=== PATIENT | male | born 1960 ===

== ENCOUNTER 2016-06-30 12:30 | Inpatient (IN) | payer OTHER ==
[~2016-06-30] VITALS: Ht 180.3 cm; Wt 98.4 kg
[2016-07-07] VITALS (12 sets, daily range): BP systolic 123–153; BP diastolic 78–100
[2016-07-07] MEDS ORDERED: ceFAZolin 2gm/50ml Premix 50 ML IVPB ONE (07:00)
[2016-07-07] MEDS ORDERED: Thrombin 5000 units TOPIC ONE ×4 (09:49→16:47)
[2016-07-07] MEDS ORDERED: Bupivacaine w/Epi 0.5% 30ml Vial INJ ONE (09:49)
[2016-07-07] MEDS ORDERED: Gelfoam Absorbable 1gm powder pkt TOPIC ONE (09:49)
[2016-07-07] MEDS ORDERED: Thrombin 5000 units spray kit TOPIC ONE (09:49)
[2016-07-07] MEDS ORDERED: Bacitracin 50000 Units Vial ONE (09:50)
[2016-07-07] MEDS ORDERED: PRILOSEC OTC20 MG ORAL (11:33)
--- NOTE | 2016-07-07 13:07 | Anethesia Preoperative Eval ---
Anesthesia Pre-op PMH/ROS General Date of Evaluation: Jul 07, 2016 Time of Evaluation: 12:20 Anesthesiologist: Nayeli ASA Score: ASA 2 Mallampati Score Class I : Soft palate, uvula, fauces, pillars visible Class II: Soft palate, uvula, fauces visible Class III: Soft palate, base of uvula visible Class IV: Only hard plate visible Mallampati Classification: Class II Surgeon: Rina Diagnosis: Lumbar radiculopathy Surgical Procedure: L5-S1 Microdiscectomy Anesthesia History: none Allergies: Coded Allergies: No Known Allergies (Unverified , 07/06/16) Medications: see eMAR Past Medical History Cardiovascular: Denies: CAD, HTN, [place], arrhythmia, other, valve dz Pulmonary: Denies: COPD, ARMANI, asthma, other Gastrointestinal/Genitourinary: Reports: GERD, Denies: CRI, ESRD, other Neurologic/Psychiatric: Denies: CVA, TIA, dementia, depression/anxiety, other Endocrine: Denies: DM, hypothyroidism, other, steroids HEENT: Denies: [place] (L), [place] (R), cataract (L), cataract (R), glaucoma, other Hematology/Immune: Denies: DVT, anemia, bleeding disorder, other Musculoskeletal/Integumentary: Denies: DDD, DJD, OA, RA, edema, other PMH Narrative: GERD, Sinusitis PSxH Narrative: No prior surgery Anesthesia Pre-op Phys. Exam Physician Exam Last Vital Signs Date Time Temp Pulse Resp B/P Pulse Ox O2 Delivery O2 Flow Rate FiO2 07/07/16 12:05 98.9 105 18 132/89 98 Room Air Constitutional: NAD Neurologic: CN 2-12 intact Cardiovascular: RRR, no M/R/G Respiratory: CTA Gastrointestinal: S/NT/ND Airway Exam Mallampati Score: Class II MO: full ROM: full Teeth: intact Anesthesia Pre-op A/P Labs WNL Studies Pre-op Studies: EKG - NSR Risk Assessment & Plan Assessment: Healthy male with radiculopathy Plan: GETA, prone Status Change Before Surgery: No Pre-Antibiotics Drug: Ancef Given Within 1 Hr of Incision: Yes TROY RUBIO M.D. Jul 07, 2016 13:07
[2016-07-07] MEDS ORDERED: LR 1000ml 1,000 ML IVLG SCH (13:08)
--- NOTE | 2016-07-07 13:08 | Immediate Post-Op Evaluation ---
TROY RUBIO M.D. 07/07/16 1308: LISBETH GOMEZ M.D. 07/07/16 1916: Immediate Post-Op Evalulation Immediate Post-Op Evalulation Procedure: L4-5 laminotomy and discectomy and coflex, L5-S1 microdiscectomy Date of Evaluation: Jul 07, 2016 Time of Evaluation: 19:11 IV Fluids: 1.2L Blood Products: 0 Estimated Blood Loss: 100 Urinary Output: 250 Blood Pressure Systolic: 123 Blood Pressure Diastolic: 88 Pulse Rate: 80 Respiratory Rate: 17 O2 Sat by Pulse Oximetry: 100 Temperature (Fahrenheit): 97.1 Pain Score (1-10): 0 Nausea: No Vomiting: No Complications 0 Patient Status: awake, reacts, patent, none Hydration Status: adequate Drug: Ancef 2g Given Within 1 Hr of Incision: Yes Time Given: 15:45 TROY RUBIO M.D. Jul 07, 2016 13:08 LISBETH GOMEZ M.D. Jul 07, 2016 19:16
[2016-07-07] MEDS ORDERED: Meperidine 25mg/ml Inj IV PRN (13:15)
[2016-07-07] MEDS ORDERED: Hydromorphone 0.5mg/0.5ml inj IVP PRN (13:15)
[2016-07-07] MEDS ORDERED: LORazepam Inj 2mg/ml 1ml IV PRN (13:15)
[2016-07-07] MEDS ORDERED: LR 1000ml 1,000 ML IV SCH (13:15)
[2016-07-07] MEDS ORDERED: Midazolam 2mg/2ml Inj ONE (15:30)
[2016-07-07] MEDS ORDERED: NS Irrig 1000ml ONE (15:30)
[2016-07-07] MEDS ORDERED: LR 1000ml ONE (15:30)
[2016-07-07] MEDS ORDERED: Zemuron 50mg/5ml Inj IV ONE (15:30)
[2016-07-07] MEDS ORDERED: Lidocaine 1% MPF 10mg/ml 5ml ONE (15:30)
[2016-07-07] MEDS ORDERED: Dexamethasone 4mg/ml vial ONE (15:30)
[2016-07-07] MEDS ORDERED: fentaNYL 100 mcg/2 mL IV ONE (15:30)
--- NOTE | 2016-07-07 15:36 | Pre-Procedure Note/Attestation ---
Pre-Procedure Note/Attestation Complete Prior to Procedure Procedure Narrative: l45s1 laminotomy, discectomy and Possible coflex Indications for Procedure Pre-Operative Diagnosis: L45S1 hnp/discopathy and radiculopathy Attestation I attest that I discussed the nature of the procedure; its benefits; risks and complications; and alternatives (and the risks and benefits of such alternatives ), prior to the procedure, with the patient (or the patient's legal customer loyalty representative). I attest that, if there was a reasonable possibility of needing a blood transfusion, the patient (or the patient's legal customer loyalty representative) was given the [facility] standardized written summary, pursuant to the Grabiel Ezekiel Blood Safety Act ([place] Health and Safety Code # 1645, as amended). I attest that I re-evaluated the patient just prior to the surgery and that there has been no change in the patient's H&P, except as documented below: MARSHA RODRIGUEZ Jul 07, 2016 15:36
--- NOTE | 2016-07-07 15:57 | Brief Operative Note ---
Immediate Post Operative Note Operative Note Pre-op Diagnosis: L45S1 hnp/discopathy and radiculopathy Procedure: L45s1 laminoforaminotomy, B l45, L l5s1, coflex at L45 Post-op Diagnosis: same as pre-op Findings: consistent w/pre-op dx studies Surgeon: andres Retail Sales Clerk: stacia bernardo Anesthesiologist: rafa Anesthesia: general Specimen: none Complications: none Condition: stable Estimated Blood Loss: minimal Drains: none Implant(s) used?: Yes - coflex MARSHA RODRIGUEZ Jul 07, 2016 15:57
[2016-07-07] MEDS ORDERED: Propofol 10mg/ml 20ml IV ONE (17:26)
[2016-07-07] MEDS ORDERED: traMADol 50mg tab ORAL PRN ×2 (18:00→21:30)
[2016-07-07] MEDS ORDERED: HYDROmorphone 1mg/ml Carpuject IVP PRN (18:00)
[2016-07-07] MEDS ORDERED: HYDROmorphone 1mg/ml Carpuject SUBQ PRN ×2 (18:00→20:45)
[2016-07-07] MEDS ORDERED: Milk of Magnesia 30ml Ud ORAL PRN (18:00)
[2016-07-07] MEDS ORDERED: Norco 7.5mg/325mg tab ORAL PRN ×2 (18:00)
[2016-07-07] MEDS ORDERED: Metoclopramide 10mg/2ml Inj IVP PRN (18:00)
[2016-07-07] MEDS ORDERED: Norco 5mg/325mg tab ORAL PRN (18:00)
[2016-07-07] MEDS ORDERED: Albuterol 90mcg Inhaler 8gm INH ONE (18:30)
[2016-07-07] MEDS ORDERED: Albuterol ud Inhalation ONE (18:44)
--- NOTE | 2016-07-07 19:07 | Operative Note - Dictated ---
DATE OF OPERATION: 07/07/2016 SURGEON: Sanju Flynn M.D. ASSISTANTS: Alejandro Peterson PA-C. ANESTHESIOLOGIST: Dr. Marina Nuñez. ANESTHESIA TYPE: General endotracheal anesthesia. PREOPERATIVE DIAGNOSES: 1. Spinal stenosis, L4-L5. 2. Left-sided lateral recess stenosis, L5-S1 with prior disk herniation. 3. 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 4. Both lower extremity radiculopathy, left worse than right. ESTIMATED BLOOD LOSS: Less than 100. COMPLICATIONS: None. OPERATION PERFORMED: 1. Bilateral hemilaminotomy inferior portion L4, superior portion of L5. 2. L5-S1 laminal foraminotomy with lysis of adhesions. 3. Application of CoFlex device at L4-L5. 4. Use of operating microscope. 5. Neurodiagnostic monitoring. 6. Use of fluoroscopy. INDICATIONS: The patient is a very pleasant gentleman with combination of mechanical back pain and radiculopathic findings primarily down the left lower extremity, but also to some extent the right lower extremity. After having failed conservative care, surgical recommendations were made. Lateral recess decompression L4-L5 and L5-S1 bilateral at L4-L5, left-sided L5-S1 as well as CoFlex possibly L4-L5 and L5-S1 reversed L4-5 alone. The patient elected to proceed. The patient was explained in detail the risks and benefits of surgery to include, but not be limited to those of bleeding, infection, damage to nerves, vessels, tendons, anesthetic risk, allergic reaction, and possibly . The patient understood and wished to proceed. The possible need for additional surgery had been discussed. The patient elected to proceed. INTRAOPERATIVE FINDINGS: Marked synovitis L4-L5 bilaterally, L5-S1 also with synovitis of the left facet joint. There was extensive amount of epidural neovascularization causing irritation of the S1 nerve root. OPERATIVE PROCEDURE IN DETAIL: The patient was taken to the operative suite. After general endotracheal anesthesia was obtained, Santamaria catheter was placed. He was turned prone onto a radiolucent table (Felipe frame). All bony prominences were well padded. Back was prepped and draped in usual sterile fashion. Under fluoroscopic guidance, the L4 through S1 levels were marked out. The skin was infiltrated with Marcaine with epinephrine. A midline incision was carried out from L4 through S1. Bilateral subperiosteal dissection was carried out at L4-L5 and left-sided at L5-S1. The levels were once again verified with fluoroscopy. Self-retaining retractor was then put into place. At this point, the L4-L5 level was first addressed. High-power microscope was brought into the field and using a high-speed drill, hemilaminotomy of the L4 inferior portion and L5 superior portion on the left was carried out to the level of the ligamentum flavum. Ligamentum flavum was then removed in a piecemeal fashion. Immediately, I was impressed by the degree of lateral recess stenosis at L4-L5 especially at the cephalad corner of the L5 lamina. At this point, with use of Kerrison punches and a curved curette, generous laminotomy was performed at L4 and L5. Medial facetectomy was performed. Extensive synovitis along the facet joints left side L4-L5 was encountered. Once completed with this, copious irrigation was performed. FloSeal was applied. Attention was then turned to the L5-S1 level and in an identical fashion hemilaminotomy of L5 was performed. There was noted to be extensive scarring and neovascularization, which required lysis with micro bipolar and micro scissors in order to free up the nerve root at S1. Copious irrigation was then applied and FloSeal was applied. Then in an identical fashion, hemilaminotomy on the right side was performed at L4 and superior one-half of L5. Copious irrigation was performed once the decompression had been completed. The neural foramen at L4-L5 bilaterally and left side at L5-S1 was probed and noted to be patent. Despite the fact that there was notable synovitis on MRI and intraoperatively on the left side at L5-S1, I elected not to perform a CoFlex procedure due to the proximity of the spinous process. The interspinous ligament was left intact at L5-S1. At this juncture, then attention was turned to the L4-L5 level. The interspinous ligament was removed in a piecemeal fashion. A 7 millimeter scope CoFlex trial was inserted and noted to have good fit. The appropriate sized CoFlex device was then inserted under microscopic visualization and verified fluoroscopically. Once the CoFlex device was inserted and noted to be just a butting, but not contacting, the dorsal dura, it was crimped in place and locked in position. Copious irrigation was then performed. A 500 mg of vanco powder was then inserted into the wound deep to the fascia as well as dorsal to the fascia. Fascia was repaired using #1 Vicryl. Subcutaneous closure using 2-0 Vicryl. Dermabond was then applied. Sterile dressing was applied. At the time of this dictation, the patient was awaiting extubation. Spone and needle counts were correct. [facility] Flynn DR: EKATERINA JOB#: [id number] CC: MARIA VICTORIA
[2016-07-07] MEDS ORDERED: Albuterol ud Inhalation HHN ONE (19:45)
[2016-07-07] MEDS ORDERED: Norco 10mg/325mg tab ORAL PRN (20:45)
[2016-07-07] MEDS: D5 1/2NS 1,000 ML IV SCH (21:45)
[2016-07-07] MEDS: Docusate 100mg cap ORAL SCH (21:45)
[2016-07-07] MEDS: Tamsulosin 0.4mg cap ORAL SCH (21:45)
[2016-07-07] MEDS: Pericolace tab ORAL SCH (21:45)
[2016-07-08 00:21] VITALS: BP 116/74
[2016-07-08 04:00] VITALS: BP 110/69
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
[2016-07-08 07:41] LABS: BASOPHILS % (AUTO) 0.2 % (0.0-2.0); LYMPHOCYTES % (AUTO) 10.5 % (20.0-45.0); MEAN CORPUSCULAR HEMOGLOBIN 31.4 PG (27.0-31.0); MEAN CORPUSCULAR HGB CONC 34.8 G/DL (32.0-36.0); MEAN CORPUSCULAR VOLUME 90 FL (80-99); MEAN PLATELET VOLUME 7.8 FL (6.5-10.1); MONOCYTES % (AUTO) 5.2 % (1.0-10.0); PLATELET COUNT 176 K/UL (150-450); RED BLOOD COUNT 4.69 M/UL (4.70-6.10); RED CELL DISTRIBUTION WIDTH 11.8 % (11.6-14.8); WHITE BLOOD COUNT 13.3 K/UL (4.8-10.8)
[2016-07-08 08:07] VITALS: BP 109/66
[2016-07-08] MEDS: Docusate 100mg cap ORAL SCH ×2 (08:34→20:24)
[2016-07-08] MEDS: ceFAZolin sod 1 GM in D5W 55 ML IV SCH ×4 (08:34→16:34)
[2016-07-08] MEDS: D5 1/2NS 1,000 ML IV SCH (08:34)
[2016-07-08] MEDS: Pericolace tab ORAL SCH ×2 (08:35→20:25)
[2016-07-08 12:06] VITALS: BP 113/70
--- NOTE | 2016-07-08 13:00 | Diagnostic Imaging Report ---
Indication: PAIN Technique: Digital intraoperative images Comparison: Findings: Digital intraoperative images demonstrate localizing needles posterior to the L5 vertebral body and posterior to S1. Subsequent images demonstrate placement of a spacer device between the L4 and L5 spinous processes Impression: Intraoperative imaging, as described
[2016-07-08] MEDS ORDERED: Tylenol #3 tab (300mg/30mg) ORAL PRN (13:30)
[2016-07-08] MEDS ORDERED: traMADol 50mg tab ORAL PRN (13:32)
[2016-07-08 15:47] VITALS: BP 127/72
--- NOTE | 2016-07-08 17:49 | 48 Hour Post Anesthesia Eval ---
Post Anesthesia Evaluation Procedure: L4-5 laminotomy and discectomy and coflex, L5-S1 microdiscectomy Date of Evaluation: Jul 08, 2016 Time of Evaluation: 07:20 Blood Pressure Systolic: 110 0: 69 Pulse Rate: 68 Respiratory Rate: 18 Temperature (Fahrenheit): 97.9 O2 Sat by Pulse Oximetry: 98 Airway: patent Nausea: No Vomiting: No Pain Intensity: 2 Hydration Status: adequate Cardiopulmonary Status: at baselin Mental Status/LOC: patient returned to baseline Post-Anesthesia Complications: 0 Follow-up care needed: N/A - further care as per pimary team LISBETH GOMEZ M.D. Jul 08, 2016 17:49
--- NOTE | 2016-07-08 19:36 | Orthopedic Spine Progress Note ---
Ortho Spine - Progress Note Subjective Symptoms: c/o post-op back pain, improved Objective Vital Signs: Last 24 Hour Vital Signs Date Time Temp Pulse Resp B/P Pulse Ox O2 Delivery O2 Flow Rate FiO2 07/08/16 17:49 68 18 98 07/08/16 15:47 98.1 96 20 127/72 97 Room Air 07/08/16 12:06 97.9 85 20 113/70 94 Room Air 07/08/16 08:07 97.7 59 20 109/66 97 Room Air 07/08/16 05:22 98.2 07/08/16 04:00 97.9 68 18 110/69 99 Nasal Cannula 2.0 07/08/16 00:21 98.2 88 18 116/74 95 Nasal Cannula 2.0 07/07/16 22:15 97.7 90 18 123/78 98 Nasal Cannula 2.0 07/07/16 21:15 97.5 90 18 123/82 98 Nasal Cannula 3.0 07/07/16 20:15 97.3 92 18 130/85 94 Nasal Cannula 3.0 07/07/16 19:55 97.2 102 23 126/86 96 Nasal Cannula 3.0 07/07/16 19:45 99 26 127/89 94 Nasal Cannula 3.0 I&O: Intake and Output 07/07/16 07/08/16 19:00 07:00 Intake Total 3445 ml Output Total 1300 ml Balance 2145 ml Intake Oral 840 ml IV Total 2605 ml Output Urine Total 1200 ml Estimated Blood Loss 100 ml # Voids 1 Wound: clean, intact Drains: none Neuro Status: normal Assessment Procedure Performed: L45s1 laminoforaminotomy, B l45, L l5s1, coflex at L45 Plan Plan: PT, pain management, d/c antibiotics, discharge plan MARSHA RODRIGUEZ Jul 08, 2016 19:36
[2016-07-08 20:00] VITALS: BP 107/67
[2016-07-08] MEDS: Tamsulosin 0.4mg cap ORAL SCH (20:25)
--- NOTE | 2016-07-08 21:57 | Progress Note ---
DATE: 07/08/2016 ACUTE PAIN MANAGEMENT PHYSICIAN PROGRESS NOTE MEDICATIONS: Medication administration record reviewed. Medications include intravenous fluids, Protonix, Flomax, Colace, Suri-Colace, antibiotics, Zofran, Reglan, Restoril, Tylenol, milk of magnesia, Ultram, Benadryl, Catapres, Cepacol, Dilaudid, [place], Mylanta and Zofran. OBJECTIVE: Vital signs within normal limits. Afebrile, pulse 85, respirations 20, blood pressure 113/70, and oxygen saturation 94% on room air. LABORATORY STUDIES: From today, July 08, 2016 shows white count 13, post-operative reactive hematocrit 42, and platelets 176. I spent over 60 minutes in consultation in consultation today. I saw the patient at bedside with his , who interpreted Portuguese. I discussed the case with the surgeon, Dr. Flynn along with the nurse RN, Lisa. The Santamaria catheter was removed and the patient has voided urine without problems. He has been advancing diet without any difficulty. He has no nausea, shortness of breath, or chest pain. The patient did ambulate with physical therapy earlier today. He has been walking with assistance, but without a front wheel walker and making good progress greater than 200 feet. The patient will continue work with physical therapy to gain lower extremity strength. The patient's lower extremity pains from preop are much improved. The patient has been using the breakthrough Dilaudid injection to help with ambulation and in addition to oral Tylenol. I will encourage Tylenol No. 3 with codeine. I have to left a prescription for 20 tablets for outpatient usage. The will try to find a local [facility] to get the prescription filled. The patient has been compliant using his incentive spirometer. We will advance the patient's diet. I will continue to encourage incentive spirometer usage. I will refer discharge plan to the surgeon Dr. Flynn. Austin Shah M.D. DR: EDGARDO JOB#: [id number] CC:
[2016-07-09 04:00] VITALS: BP 113/64
[2016-07-09 07:59] VITALS: BP 105/61
[2016-07-09] MEDS: Pericolace tab ORAL SCH (09:26)
[2016-07-09] MEDS: Docusate 100mg cap ORAL SCH (09:26)
[2016-07-09] MEDS ORDERED: Thrombin 5000 units TOPIC ONE (10:08)
--- NOTE | 2016-07-09 11:28 | Progress Note ---
DATE: 07/09/2016 ACUTE PAIN MANAGEMENT PHYSICIAN PROGRESS NOTE: MEDICATIONS: Medication administration record reviewed. Medications include Tylenol, Tylenol #2 with codeine, Mylanta, Cepacol, Catapres, Benadryl, Colace, Dilaudid, milk of magnesia, Zofran, Protonix, Flomax, Ultram, and Suri-Colace. OBJECTIVE: VITAL SIGNS: Afebrile. Pulse 77, respirations 20, blood pressure 105/61, and oxygen saturation 96% on room air. LABORATORY STUDIES: From yesterday on 07/08/2016 shows white count 13, hematocrit 42, and platelets 176,000. I spent over sixty minutes in consultation today. I discussed the case with the surgeon, Dr. Flynn along with the nurse RN and the patient's , who was at the bedside interpreting Czech. The patient had been ambulating very well over the past 24 hours. He is passing positive flatus and has no nausea symptoms. He has not yet had a bowel movement. I did encourage the patient to use whenever the natural food laxative remedies that works well for him personally. The pain has been well controlled on oral analgesics. I did leave a prescription for Tylenol #3 with codeine, quantity of 20 tablets for this gentleman who does not take many pain pills. The does not drive and would be able to transfer the patient home later this morning. The patient will follow up with Dr. Flynn in the outpatient surgical clinic. The patient denies any shortness of breath or chest pain. I did encourage continued use of incentive spirometer in light of his obesity. Overall, the patient is doing quite well. His left lower extremity radicular symptoms have improved significantly since completion of surgery. I agreed with discharge trial home today. Austin Shah M.D. DR: MARIAM JOB#: [id number] CC:
[2016-07-09 11:39] VITALS: BP 115/68
[2016-07-09] MEDS ORDERED: Tubing IV Secondary IV ONE (15:49)
[2016-07-09] MEDS ORDERED: D5 1/2NS 1000ml IV ONE (15:49)
--- NOTE | 2016-07-10 18:47 | Discharge Summary ---
Discharge Summary Hospital Course Date of Admission Jul 07, 2016 at 11:08 Date of Discharge Jul 09, 2016 at 15:50 Admitting Diagnosis HPI Moses Hartman is a 56 year old male who was admitted on Jul 07, 2016 at 11:08 for Radiculopathy Hospital Course [id number] Discharge Discharge Disposition Patient was discharged to Home (01) Discharge Diagnoses: Elisha Hernandez NP Jul 10, 2016 18:47
--- NOTE | 2016-07-11 00:07 | Discharge Summary 2 SIG ---
DATE OF ADMISSION: 07/07/2016 DATE OF DISCHARGE: 07/09/2016 CONSULTANTS: Austin Shah M.D. BRIEF HOSPITAL COURSE: The patient is a 56-year-old male with combination of mechanical back pain and radiculopathic findings primarily down to the left lower extremity, but also to some extent to the right lower extremity. After having failed conservative care, surgical recommendations were made. On 07/07/2016, the patient underwent bilateral yves-laminotomy inferior portion of L4, superior portion of L5, and L5-S1 laminal foraminotomy with lysis of adhesions with application of complex device at L4-L5 under the use of operating microscope, neurodiagnostic monitoring, and fluoroscopy. He tolerated procedure well. Postoperatively, pain management was consulted and was ordered tramadol, [place], and Dilaudid for breakthrough pain. He was encouraged incentive spirometry and was given Cepacol lozenges for sore throat, Protonix for GI prophylaxis, and SCDs for DVT prophylaxis. The patient's pain was controlled. The patient was doing well and the patient was tolerating diet. The patient was eventually discharged home. FINAL DIAGNOSES: 1. Spinal stenosis at L4-L5. 2. Left-sided lateral recess stenosis L5-S1 with prior disc herniation. 3. 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 4. Both lower extremity radiculopathy, left worse than right. 5. Bilateral hemilaminotomy at inferior portion of L4 and superior portion of L5. 6. L5-S1 laminal foraminotomy with lysis of adhesions. 7. Application of complex device at L4-L5. 8. Postop pain. Sanju Flynn M.D. I have been assigned to dictate discharge summary on this account and I was not involved in the patient's management. Elisha Hernandez N.P. DR: GINA JOB#: [id number] CC: MARIA VICTORIA
== END 2016-07-09 15:50 | disposition home or self-care (01) | DRG 520 ==
LOC: SDSOVERFLO 07-07 11:08 → 3E 07-07 21:03
PROC: 00NY0ZZ Release Lumbar Spinal Cord, Open Approach (ICD-10-PCS; principal; 2016-07-07 12:30)
PROC: 0QN00ZZ Release Lumbar Vertebra, Open Approach (ICD-10-PCS; principal; 2016-07-07 12:30)
DX: M48.06 Spinal stenosis, lumbar region (principal); E66.9 Obesity, unspecified; M54.16 Radiculopathy, lumbar region; M65.88 Other synovitis and tenosynovitis, other site; K21.9 Gastro-esophageal reflux disease without esophagitis
CPT/HCPCS: 36415; 72020; 76000; 85025; 86850; 86900; 86901; 87081; 94003; 94150; C9399; J2250; J2405